=== PATIENT | female | born 1990 | race African-American/Black ===

== ENCOUNTER 2016-12-26 22:08 | Emergency (ER) | payer OTHER ==
[2016-12-26 22:12] VITALS: BP 127/78; PULSE 69; TEMP 98.7; BMI 33.4
[2016-12-26] MEDS ORDERED: TETRACAINE 0.5% HCL 0.6ML DROPPER.BOTTLE OS ONE (22:28)
[2016-12-26] MEDS ORDERED: TETRACAINE 0.5% OPHTH SOLN 2 ML BOTTLE ONE (22:29)
[2016-12-26] MEDS ORDERED: FLUORESCEIN NA 1 EA STRIP ONE (22:29)
--- NOTE | 2016-12-26 22:34 | PDOC ---
History of Present Illness - General Chief Complaint: Eye Problem Stated Complaint: EYE PROBLEM Time Seen by Provider: 12/26/16 22:18 History Source: Patient Exam Limitations: No Limitations - History of Present Illness Initial Comments: 12/26/16 22:29 26yo Female patient w/ PmHx: Asthma presents to ED c/o left eye pain. Patient states she has been wearing contacts lens for cosmetic purpose when she removed them earlier today due to blurred vision. Patient reports 1 hr after removal experiencing Lt eye pain. She denies trauma, injury, or foreign body. Patient states not using any OTC eye drops or medications for symptoms management. LNMP : 3 weeks ago. Timing/Duration: 1 hour, getting worse Severity: severe Modifying Factors: improves with: other. worse with: cold therapy, eating, immobilization, medication, movement, rest Associated Symptoms: denies: denies symptoms, chest pain, cough, diaphoresis, fever/chills, headaches, loss of appetite, malaise, nausea/vomiting, rash, seizure, shortness of breath, syncope, weakness, other Aspirin Received prior to arrival: No: no aspirin today, unknown, 81 mg x 1, 81 mg x 2, 81 mg x 3, 81 mg x 4, 325 mg x 1, provided at home, provided by EMS, provided by ED [facility] Contraindications(Core Measure): No: Allergy, Other, Active Blding w/i 24 hrs., Plavix, Receiving Warfarin Beta Brenda Contraindications(Core Measure): No: Not Prescribed, Allergy, Bradycardia (HR <60bpm), Advanced Heart Block, Pacemaker, Other Past History - Travel Traveled outside of the country in the last 30 days: No Close contact w/someone who was outside of country & ill: No - Past Medical History Allergies/Adverse Reactions: Allergies Allergy/AdvReac Type Severity Reaction Status Date / Time No Known Allergies Allergy Verified 12/26/16 22:10 Home Medications: Ambulatory Orders Albuterol Sulfate Inhaler - [Ventolin HFA Inhaler -] 2 inh PO Q4H PRN 12/26/16 Asthma: Yes - Psycho/Social/Smoking Cessation Hx Anxiety: No Suicidal Ideation: No Smoking History: Never smoked Hx Alcohol Use: No Substance Use Type: None Review of Systems - Review of Systems Able to Perform ROS?: Yes Is the patient limited Mohawk proficient: No Constitutional: No: Chills, Fever HEENTM: Yes: Eye Pain, Blurred Vision, Tearing. No: Cataracts, Ear Pain, Ear Discharge, Nose Pain, Throat Pain, Throat Swelling, Difficulty Swallowing, Mouth Swelling Respiratory: No: Cough, Wheezing Cardiac (ROS): No: Chest Pain All Other Systems: Reviewed and Negative *Physical Exam - Vital Signs Last Vital Signs Temp Pulse Resp BP Pulse Ox 98.7 F 69 18 127/78 100 12/26/16 22:10 12/26/16 22:10 12/26/16 22:10 12/26/16 22:10 12/26/16 22:10 - Physical Exam Comments: 12/26/16 22:32 Visual eye acuity: 20/20 Rt eye. 20/30 Lt eye. General Appearance: Yes: Nourished, Appropriately Dressed, Apparent Distress, Moderate Distress. No: Mild Distress, Severe Distress HEENT: positive: EOMI, LEYDA, Normal ENT Inspection, Normal Voice, Symmetrical, TMs Normal, Pharynx Normal, Other (Lt eye redness, Sclera injected, Conjunctiva moderate redness, excessive eye tearing, inability to tolerate eye opening.). negative: Scleral Icterus (R), Scleral Icterus (L), Pharyngeal Erythema, Tonsillar Exudate, Tonsillar Erythema, Nasal Congestion, Rhinorrhea Neck: positive: Trachea midline, Normal Thyroid, Supple. negative: Lymphadenopathy (R), Lymphadenopathy (L) Respiratory/Chest: positive: Lungs Clear, Normal Breath Sounds. negative: Chest Tender, Respiratory Distress, Accessory Muscle Use, Labored Respiration, Rapid RR Cardiovascular: positive: Regular Rhythm, Regular Rate Musculoskeletal: positive: Normal Inspection. negative: CVA Tenderness Extremity: positive: Normal Capillary Refill, Normal Inspection, Normal Range of Motion. negative: Tender, Pedal Edema, Swelling, Calf Tenderness, Erythema, Inflammation Integumentary: positive: Normal Color, Dry, Warm. negative: Rash, Swelling Neurologic: positive: packer denture II-XII NML intact, Fully Oriented, Alert, Normal Mood/ Affect, Normal Response, Motor Strength 5/5 Procedures - Eye Procedure Alcaine Drops Administered: Yes Eye Irrigated w/ Saline(Froylan Lens): No Antibiotic Oinment/Drps Admin: left eye Progress: 12/26/16 22:43 Patient tolerated procedure well. No corneal abrasion noted. Pupil dilated 6mm vs 3mm to right eye. *DC/Admit/Observation/Transfer Diagnosis at time of Disposition: Eye pain Qualifiers: Laterality: left Qualified Code(s): H57.12 - Ocular pain, left eye - Discharge Dispostion Disposition: HOME Condition at time of disposition: Stable Admit: No - Referrals Referrals: Jaden Lara MD [Staff Physician] - - Patient Instructions Printed Discharge Instructions: DI for Eye Pain, DI for Corneal Abrasion Additional Instructions: Follow up with Ophthalmology or Motor[facility] [employer] Captain within 3 days for comprehensive eye exam. You must follow up without fail, this is very important. Administer drops as: 2 drops every 3 hours while awake x 2 days, then 1 drop every 3 hours x 3 days. Do not put any contacts in eyes during this time. Return if any concern for further evaluation. Print Language: PASHTO - Post Discharge Activity Work/School Note: Back to Work
[2016-12-26] MEDS ORDERED: CIPROFLOXACIN 0.3% EYE DROPS 5 ML BOTTLE OS ONE (22:52)
[2016-12-26] MEDS ORDERED: CIPROFLOXACIN HCL 0.3% OPHTH 2.5ML BOTTLE ONE (23:06)
[2016-12-27] MEDS ORDERED: CIPROFLOXACIN 0.3% EYE DROPS 5 ML BOTTLE OS ONE (22:52)
== END 2016-12-26 23:20 | disposition home or self-care (01) ==
LOC: JER 22:08
PROC: 4A07X0Z Measurement of Visual Acuity, External Approach (ICD-10-PCS; principal; 2016-12-26)
DX: H57.12 Ocular pain, left eye (principal)
CPT/HCPCS: 99173; 99281-25

== ENCOUNTER 2021-04-20 14:10 | Emergency (ER) | payer SELFPAY ==
[2021-04-20 14:29] VITALS: BP 131/89; PULSE 96; TEMP 98; BMI 36.9
[2021-04-20] MEDS ORDERED: LIDOCAINE 5% TOPICAL PATCH TP ONE (15:36)
[2021-04-20] MEDS ORDERED: ACETAMINOPHEN 325 MG TABLET (FP) PO ONE (15:36)
[2021-04-20] MEDS ORDERED: METHOCARBAMOL 500 MG TABLET PO ONE (15:38)
[2021-04-20] MEDS ORDERED: METHOCARBAMOL 500 MG TABLET ONE (15:42)
[2021-04-20] MEDS ORDERED: ACETAMINOPHEN 325 MG TABLET (FP) ONE (15:42)
[2021-04-20] MEDS ORDERED: LIDOCAINE 5% TOPICAL PATCH ONE (15:42)
[2021-04-20] MEDS ORDERED: KETOROLAC TROMETHAMINE 30 MG/1 ML VIAL IM ONE (18:30)
[2021-04-20] MEDS ORDERED: KETOROLAC TROMETHAMINE 30 MG/1 ML VIAL ONE (18:31)
[2021-04-20] MEDS ORDERED: LIDOCAINE PATCH REMOVAL MC SCH (22:00)
== END 2021-04-20 18:47 | disposition home or self-care (01) ==
LOC: JERFT 14:10
PROC: 3E0233Z Introduction of Anti-inflammatory into Muscle, Percutaneous Approach (ICD-10-PCS; principal; 2021-04-20)
DX: M54.50 Low back pain, unspecified (principal); M54.2 Cervicalgia; R51.9 Headache, unspecified; V43.52XA Car driver injured in collision with other type car in traffic accident, initial encounter
CPT/HCPCS: 70450-TC; 72100-TC-FY; 72125-TC; 99285-25